=== PATIENT | male | born 1960 | race Two or more races ===

== ENCOUNTER 2023-09-18 11:08 | Emergency (ER) | payer OTHER ==
[~2023-09-18] VITALS: Ht 185.4 cm; Wt 94.5 kg
[2023-09-18] MEDS: IOHEXOL 350 MG/ML 100ML IJ ONE (11:45)
[2023-09-18 11:58] LABS: Basophils # (auto) 0.1 10 ^3/uL (0-0.2); Basophils % (auto) 0.4 % (0.0-2.0); Eosinophils # (auto) 0 10 ^3/uL (0-0.8); Eosinophils % (auto) 0.1 % (0.0-7.0); Hematocrit 45.9 % (41.0-53.0); Hemoglobin 15.5 g/dL (13.5-17.5); Lymphocytes # (auto) 1.2 10 ^3/uL (0.4-5.4); Mean Corpuscular Hemoglobin 33.4 pg (28.0-32.0); Mean Corpuscular Hgb Conc. 33.9 g/dL (32.0-36.0); Mean Corpuscular Volume 98.6 fL (80.0-100.0); Monocytes # (auto) 0.7 10 ^3/uL (0-1.3); Monocytes % (auto) 5.6 % (0.0-12.0); Neutrophils # (auto) 10.4 10 ^3/uL (1.6-8.6); Neutrophils % (auto) 83.9 % (37.0-80.0); Nucleated Red Blood Cells % 0.1 %; Red Blood Cells 4.65 10^6/uL (4.5-5.90); Red Cell Distribution Width 12.8 % (11.8-14.3); White Blood Cell 12.4 10^3/uL (4.4-10.8)
[2023-09-18 12:16] LABS: Alanine Aminotransferase 33 U/L (7-40); Albumin 4.7 g/dL (3.2-4.8); Alkaline Phosphatase 43 U/L (46-116); Anion Gap 9 (5-15); Aspartate Aminotransferase 26 U/L (13-40); BUN/Creatinine Ratio 16.7 (10.0-20.0); Bilirubin, Total 2.6 mg/dL (0.2-1.0); Blood Urea Nitrogen 18 mg/dL (9-23); Carbon Dioxide 26 mmol/L (20-30); Chloride 104 mmol/L (98-107); Glucose 126 mg/dL (74-106); Sodium 139 mmol/L (136-145); Total Protein 7.2 g/dL (5.7-8.2)
[2023-09-18 12:17] LABS: INR 1.11 (0.9-1.15); Partial Thromboplastin Time 26.7 SEC (24.5-34.5); Prothrombin Time 11.6 sec (9.3-11.8)
[2023-09-18] MEDS: METOCLOPRAMIDE HCL 5MG/ml INJ 2ml VIAL IV ONE (12:42)
[2023-09-18 15:56] LABS: Urine Bacteria None Seen /hpf (None Seen)
[2023-09-18 16:16] LABS: Urine Blood Negative /uL (Negative); Urine Clarity Clear (Clear); Urine Color Yellow (Yellow); Urine Protein, UAD 1+ (Negative); Urine Urobilinogen Normal (Negative); Urine WBC <1 /hpf (0 - 3)
[2023-09-18 16:17] LABS: Urine Specific Gravity > 1.050 (1.001-1.035)
[2023-09-18 17:27] VITALS: BP 99/74; PULSE 60; RESP 20; TEMP 97.7; O2SAT 100
[2023-09-18] MEDS: MECLIZINE HCL 25 MG TAB PO ONE (17:41)
== END 2023-09-18 20:01 | disposition left against medical advice (07) ==
LOC: ER 11:08
DX: R42 Dizziness and giddiness (principal); R11.2 Nausea with vomiting, unspecified; I48.91 Unspecified atrial fibrillation; R07.89 Other chest pain
CPT/HCPCS: 36415; 70450; 70496; 71045; 80053; 81001; 83880; 84484; 85025; 85379; 85610; 85730; 93005; 96374; 99285; J2765; J8597; Q9967